=== PATIENT | female | born 1980 | race Caucasian/White ===

== ENCOUNTER 2018-09-01 02:09 | Emergency (ER) | payer OTHER ==
[~2018-09-01] VITALS: Ht 170.2 cm; Wt 91.3 kg
[2018-09-01 02:14] VITALS: BP 124/96
[2018-09-01 04:03] LABS: ANION GAP 14.7 (8-16); CARBON DIOXIDE 26.7 mmol/L (21-32); CREATININE 0.6 mg/dL (0.6-1.3); POTASSIUM 3.4 mmol/L (3.5-5.1)
[2018-09-01 04:06] LABS: PROTHROMBIN TIME 9.8 secs (10.8-13.4)
[2018-09-01 04:09] LABS: ALBUMIN 3.5 g/dL (3.4-5.0); TOTAL BILIRUBIN 0.2 mg/dL (0.0-1.0)
[2018-09-01 04:12] LABS: BASOPHILS % (AUTO) 0.3 % (0.0-2.0); EOSINOPHILS # (AUTO) 0.1 K/uL (0-0.4); EOSINOPHILS % (AUTO) 1.3 % (0.0-4.0); HEMATOCRIT 39.6 % (36-48); HEMOGLOBIN 13.1 g/dL (12.0-16.0); LYMPHOCYTES # (AUTO) 3.4 K/uL (2.5-16.5); MEAN CORPUSCULAR HEMOGLOBIN 29 pg (27-31); MEAN CORPUSCULAR HGB CONC 33 g/dL (33-37); MEAN CORPUSCULAR VOLUME 87.3 fL (80-94); MONOCYTES # (AUTO) 0.7 K/uL (0.8-1.0); MONOCYTES % (AUTO) 8.3 % (1.7-9.3); NEUTROPHILS # (AUTO) 4.2 K/uL (1.8-7.7); NEUTROPHILS % (AUTO) 50.1 % (42.2-75.2); PLATELET COUNT (AUTO) 208 K/uL (140-450); RED BLOOD CELL COUNT(AUTO) 4.54 MIL/uL (4.20-5.40); RED CELL DISTRIBUTION WIDTH 13.8 % (11.6-13.7); WHITE BLOOD COUNT (AUTO) 8.5 K/uL (4.8-10.8)
[2018-09-01] MEDS ORDERED: KETOROLAC 15 MG/ML VIAL IVP ONE (04:15)
[2018-09-01] MEDS ORDERED: FAMOTIDINE 20 MG TAB PO ONE (04:15)
[2018-09-01] MEDS ORDERED: ALUMINUM HYD/MAG/SIMETHICONE 30 ML UDC PO ONE (04:15)
[2018-09-01] MEDS ORDERED: MORPHINE SULFATE 4 MG/ML SYR IVP ONE ×3 (04:15→07:40)
[2018-09-01] MEDS ORDERED: LIDOCAINE VISCOUS 2% 20 ML UDC PO ONE (04:15)
[2018-09-01 04:39] LABS: APPEARANCE,URINE SL CLOUDY (CLEAR); BILIRUBIN,URINE NEGATIVE (NEGATIVE); BLOOD, URINE NEGATIVE (NEGATIVE); COLOR,URINE YELLOW (YELLOW); LEUKOCYTE ESTERASE ,URINE 1+ (NEGATIVE); NITRITE, URINE NEGATIVE (NEGATIVE); UGLUCOSE NEGATIVE (NEGATIVE)
[2018-09-01 04:44] LABS: RBC,URINE 0-5 (RARE) /HPF (0-5)
[2018-09-01] MEDS ORDERED: PANTOPRAZOLE 40 MG INJ VIAL IVP ONE (06:45)
[2018-09-01] MEDS ORDERED: OXYC40TE66 PO (07:03)
[2018-09-01] MEDS ORDERED: MSCON15 PO (07:03)
[2018-09-01] MEDS ORDERED: MULT-153 PO (07:03)
[2018-09-01] MEDS ORDERED: LYR50 PO (07:03)
[2018-09-01] MEDS ORDERED: GABA400C PO (07:03)
[2018-09-01 08:50] VITALS: BP 121/85
== END 2018-09-01 08:50 | disposition left against medical advice (07) ==
LOC: MED 02:09
DX: K92.1 Melena (principal); R10.32 Left lower quadrant pain; R07.89 Other chest pain; Z79.891 Long term (current) use of opiate analgesic; Z79.899 Other long term (current) drug therapy
CPT/HCPCS: 36415; 71046; 74177; 80053; 81001; 81025; 83690; 84484; 85025; 85610; 85730; 87086; 87186; 93005; 96374; 96375; 96376; 99284; C9113; J1885; J2270; Q9967